=== PATIENT | female | born 1970 | race Caucasian/White ===

== ENCOUNTER → 2018-07-31 | Outpatient (CLI) | payer BC ==
[~2018-07-31] MED LIST: SYNTHROID0.05 MG/TA PO
== END ==
LOC: MC.RAD 07-28 13:40
DX: Z12.31 Encounter for screening mammogram for malignant neoplasm of breast (principal)

== ENCOUNTER → 2019-08-03 | Outpatient (CLI) | payer BC | LOC: MC.RAD 13:14 | DX: Z12.31 Encounter for screening mammogram for malignant neoplasm of breast (principal) ==

== ENCOUNTER → 2020-08-06 | Outpatient (CLI) | payer BC | LOC: MC.RAD 13:28 | DX: Z12.31 Encounter for screening mammogram for malignant neoplasm of breast (principal) ==

== ENCOUNTER → 2021-09-22 | Outpatient (CLI) | payer BC | LOC: MC.RAD 09:28 | DX: Z12.31 Encounter for screening mammogram for malignant neoplasm of breast (principal) ==

== ENCOUNTER 2023-02-10 07:58 | Day surgery (SDC) | payer BC ==
[~2023-02-10] VITALS: Ht 162.6 cm; Wt 72.1 kg
[2023-02-10] MEDS ORDERED: ESTRACE0.5 MG PO (08:33)
[2023-02-10] MEDS ORDERED: ARMOUR THYROID30 MG PO (08:34)
[2023-02-10 08:54] VITALS: BP 154/91; PULSE 98; TEMP 97.8
[2023-02-10] MEDS ORDERED: NORCO 325 MG-51 TAB PO (13:54)
[2023-02-10 14:40] VITALS: BP 157/102; PULSE 96; TEMP 98.4
[2023-02-10 14:55] VITALS: BP 153/90; PULSE 87
[2023-02-10 15:10] VITALS: BP 151/95; PULSE 94
[2023-02-10 15:25] VITALS: BP 142/85; PULSE 87
--- NOTE | 2023-02-10 16:37 | NUR ---
1440: PATIENT TO BAY 1 PER CART FROM PACU. REPORT RECEIVED. VS OBTAINED. BREATHING EVEN AND UNLABORED. C/O PAIN AT 4/10. DENIES NEEDING PAIN MEDICATION AT THIS TIME. WARM BLANKET PROVIDED. 3 INCISION ON ABDOMEN C/D/I. PATIENT TOLERATING ICE CHIPS WELL. RESTING IN COT. AT BEDSIDE. CALL LIGHT IN REACH. 1455: VS REMAIN STABLE. PATIENT CONTINUES TO TOLERATE ICE CHIPS WELL WITH NO COMPLAINTS OF NAUSEA. RATING PAIN 5/10. PATIENT DOES NOT WANT PAIN MEDICATIONS AT THIS ITME. RESTING IN COT. CALL LIGHT IN REACH. 1510: PATIENT REQUESTING PAIN MEDICATIONS AT THIS TIME. RATING PAIN 8/10. CRACKERS GIVEN WITH PAIN MEDICATIONS. 1525: PATIENT STATING SHE IS FEELING BETTER AT THIS TIME. TOLERATING CRACKERS AND WATER. REMAINS AT BEDSIDE. CALL LIGHT IN REACH. 1530: DISCHARGE EDUCATION COMPLETED. PATIENT STATED UNDERSTANDING OF HOME AND FOLLOW-UP CARE. DISCHARGE PAPERWORK GIVEN TO PATIENT. IV DC'D AT THIS TIME. PATIENT DENIES ANY ASSISTANCE WITH DRESSING. REMAINS IN ROOM. 1550: PATIENT OFF UNIT VIA WHEELCHAIR. PATIENT DISCHARGED TO HOME WITH PER PERSONAL VEHICLE.
[2023-02-10 18:47] VITALS: BP 152/102; PULSE 92; TEMP 99
== END 2023-02-10 15:50 | disposition home or self-care (01) ==
LOC: SDCO 07:58
DX: K41.30 Unilateral femoral hernia, with obstruction, without gangrene, not specified as recurrent (principal)
CPT/HCPCS: C1781; J0690; J1100; J1885; J2405; J2704; J3010; J7120